=== PATIENT | female | born 1970 | race American Indian/Alaskan Native ===

== ENCOUNTER 2019-04-16 07:49 | Emergency (ER) | payer MEDICAID ==
[2019-04-16 08:02] VITALS: BP 130/63
--- NOTE | 2019-04-16 08:30 | Emergency Department Report ---
HPI - General Chief Complaint: Skin Rash Time Seen by Provider: 04/16/19 08:04 - HPI HPI: 48-year-old -[place] female presents to the emergency department with a complaint of a rash that has been going on for the past month. This started off as small circular lesions and sometimes will grow larger in size. There are raised from the skin and often times are itchy. She denies any bleeding, weeping or drainage. She has some sporadic localized lesions seen to the bilateral arms and her abdomen. The patient says that her daughter also had one of these lesions recently but it was treated with some hydrocortisone cream and it has since resolved. The patient has been using some [id number] steroid cream as well without much relief. No recent travel. ED Past Medical Hx - Past Medical History Previous Medical History?: Yes Hx Arthritis: Yes - Surgical History Past Surgical History?: Yes Additional Surgical History: Tubal Ligation 2011 - Social History Smoking Status: Former Smoker Substance Use Type: Alcohol - Medications Home Medications: Home Medications Medication Instructions Recorded Confirmed Last Taken Type Acetaminophen/Codeine [Tylenol #3] 1 tab PO Q6H PRN #14 tab 04/18/16 Unknown Rx Clotrimazole 1% [Lotrimin 1%] 1 applic TP BID #1 tube 04/16/19 Unknown Rx ED Review of Systems ROS: Stated complaint: RASH Other details as noted in HPI Comment: All other systems reviewed and negative Constitutional: denies: chills, fever Skin: rash, lesions Hematological/Lymphatic: denies: easy bleeding, easy bruising Physical Exam - Physical Exam Vital Signs: Vital Signs 04/16/19 07:56 Temperature 99 F Pulse Rate 72 Respiratory 18 Rate Blood Pressure 130/63 O2 Sat by Pulse 100 Oximetry Physical Exam: GENERAL: The patient is well-developed well-nourished. HENT: Normocephalic. Atraumatic. Patient has moist mucous membranes. EYES: Extraocular motions are intact. NECK: Supple. Trachea is midline. CHEST/LUNGS: Clear to auscultation. There is no respiratory distress noted. HEART/CARDIOVASCULAR: Regular. There is no tachycardia. There is no murmur. ABDOMEN: There is no abdominal distention. SKIN: The patient has multiple sporadic localized circular raised dry scaly lesions seem to the bilateral upper extremities as well as the abdomen. There is no bleeding, weeping, drainage. These lesions appear concerning for an consistent with tinea corporis. NEURO: The patient is awake, alert, and oriented. The patient is cooperative. The patient has no focal neurologic deficits. The patient has normal speech. MUSCULOSKELETAL: There is no tenderness or deformity. There is no evidence of acute injury. ED Course Vital Signs 04/16/19 07:56 Temperature 99 F Pulse Rate 72 Respiratory 18 Rate Blood Pressure 130/63 O2 Sat by Pulse 100 Oximetry ED Medical Decision Making - Medical Decision Making The patient presents with complaint of some type of a rash or bites or lesions that up and going on for the past month. Some of them will go away and then they will come back for new lesions were palpable. On examination, she has multiple circular raised scaly dry lesions that appear concerning for tinea corporis. Most of them are rather small about 1 cm the larger one was seen to the right proximal bicep. The patient says that her daughter had one of these lesions but it went away with only hydrocortisone. However, given the length of time the patient has been doing this and the physical appearance of the rash just lesions, the patient will be treated with clotrimazole twice a day for 2-3 weeks. 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 We discussed how easily this rash can be transferred or spread and that she will need to cover them up when in contact with anyone or sharing any type of furniture or equipment. She will return to ER for any worsening of her symptoms or any acute distress. - Differential Diagnosis tinea corporis, dermatitis, viral exanthem Critical Care Time: No Critical care attestation.: If time is entered above; I have spent that time in minutes in the direct care of this critically ill patient, excluding procedure time. ED Disposition Clinical Impression: Tinea corporis Disposition: DC-01 TO HOME OR SELFCARE Is pt being admited?: No Condition: Stable Instructions: Tinea Corporis (ED) Additional Instructions: Please follow-up with your primary care physician. I have given you a referral for 2 different dermatologists to follow-up regarding your rash. Return to the emergency Department with any worsening of your symptoms or any acute distress. This rash is easily transferable/spreadable. Make sure to cover up the lesions when interacting or contacting other people, or utilizing any shared furniture, equipment, etc. You will use the antifungal cream for 2-3 weeks, the rash/lesions have resolved. Prescriptions: Clotrimazole 1% [Lotrimin 1%] 1 applic TP BID #1 tube Referrals: HERNÁN GARCIA MD [Primary Care Provider] - 2-3 Days VERNA KINCAID MD [Staff Physician] - 2-3 Days Maurice Rivera [Other] - 2-3 Days Time of Disposition: 08:32
== END 2019-04-16 08:45 | disposition home or self-care (01) ==
LOC: ED 07:49
DX: B35.4 Tinea corporis (principal); M19.90 Unspecified osteoarthritis, unspecified site; Z98.51 Tubal ligation status; Z87.891 Personal history of nicotine dependence

== ENCOUNTER 2021-09-11 06:32 | Emergency (ER) | payer MEDICAID ==
[2021-09-11] MEDS ORDERED: HYDROcodone/ACETAMINOPHEN 10-325MG TAB PO ONE (07:22)
--- NOTE | 2021-09-11 07:26 | Emergency Department Report ---
ED Back Pain/Injury HPI - General Chief Complaint: Back Pain/Injury Stated Complaint: BACK PAIN SILVANA Time Seen by Provider: 09/11/21 07:12 Source: patient Limitations: No Limitations - History of Present Illness Initial Comments: 50 year-old female presents to the ER today with complaints of severe left thoracic back pain. Patient states that her pain started around 130 this mor hanane while she was lifting up a box. She states that she did not think that the boxes are heavy. She states that she started with immediate pain while lifting the box. She states that the pain has been constant since this morning and radiates underneath her left breast. She reports difficulty taking a deep breath due to worsening pain. She also reports worsening pain with movement and certain positions. She reports nausea but no vomiting. She denies any abdominal pain. Diaphoresis, fever, chills, cough or any other URI symptoms. She denies any lower extremity swelling or calf pain. She denies any pain down into her lower back or into the legs. She denies any saddle anesthesia, bowel or bladder incontinence, lower extremity weakness. She states that she has a history of scoliosis but denies any other spine issues. She smokes but she denies any illicit drugs. She denies any significant past medical history. MD Complaint: back pain -: Sudden - Related Data Previous Rx's Medication Instructions Recorded Last Taken Type Acetaminophen/Codeine [Tylenol #3] 1 tab PO Q6H PRN #14 tab 04/18/16 Unknown Rx Clotrimazole 1% [Lotrimin 1%] 1 applic TP BID #1 tube 04/16/19 Unknown Rx HYDROcodone/APAP 5-325 [Luckey 1 each PO Q4HR PRN #12 tablet 09/11/21 Unknown Rx 5/325] Ketorolac [Toradol] 10 mg PO Q6H PRN #20 tablet 09/11/21 Unknown Rx Metaxalone [Skelaxin] 800 mg PO TID #30 tablet 09/11/21 Unknown Rx Allergies Allergy/AdvReac Type Severity Reaction Status Date / Time No Known Allergies Allergy Verified 04/18/16 19:30 ED Review of Systems ROS: Stated complaint: BACK PAIN SILVANA Other details as noted in HPI Comment: All other systems reviewed and negative Constitutional: denies: chills, fever Eyes: denies: eye pain, eye discharge, vision change ENT: denies: ear pain, throat pain, dental pain, hearing loss, congestion Respiratory: other (difficulty taking a deep breath due to pain ). denies: cough, orthopnea, shortness of breath, SOB with exertion, SOB at rest, wheezing Cardiovascular: denies: chest pain, palpitations, dyspnea on exertion, edema, syncope, paroxysmal nocturnal dyspnea Endocrine: no symptoms reported Gastrointestinal: denies: abdominal pain, nausea, vomiting, diarrhea, constipation, hematemesis, melena Genitourinary: denies: urgency, dysuria, hematuria, discharge, abnormal menses, dyspareunia Musculoskeletal: back pain. denies: joint swelling, arthralgia, myalgia Skin: denies: rash, lesions, change in color, change in hair/nails, pruritus Neurological: denies: headache, weakness, numbness, paresthesias, confusion, abnormal gait, vertigo Psychiatric: denies: anxiety, depression, auditory hallucinations, visual hallucinations, homicidal thoughts ED Past Medical Hx - Past Medical History Previous Medical History?: Yes Hx Arthritis: Yes - Surgical History Past Surgical History?: Yes Additional Surgical History: Tubal Ligation 2011 - Social History Smoking Status: Former Smoker Substance Use Type: Alcohol - Medications Home Medications: Home Medications Medication Instructions Recorded Confirmed Last Taken Type Acetaminophen/Codeine [Tylenol #3] 1 tab PO Q6H PRN #14 tab 04/18/16 Unknown Rx Clotrimazole 1% [Lotrimin 1%] 1 applic TP BID #1 tube 04/16/19 Unknown Rx HYDROcodone/APAP 5-325 [Luckey 1 each PO Q4HR PRN #12 tablet 09/11/21 Unknown Rx 5/325] Ketorolac [Toradol] 10 mg PO Q6H PRN #20 tablet 09/11/21 Unknown Rx Metaxalone [Skelaxin] 800 mg PO TID #30 tablet 09/11/21 Unknown Rx ED Physical Exam - General Limitations: No Limitations General appearance: alert, in distress (Patient appears uncomfortable and appears to be in pain), obese - Head Head exam: Present: atraumatic, normocephalic, normal inspection - Eye Eye exam: Present: normal appearance, PERRL, EOMI Pupils: Present: normal accommodation - ENT ENT exam: Present: normal exam, mucous membranes moist - Neck Neck exam: Present: normal inspection, full ROM. Absent: tenderness, meningis mus - Respiratory Respiratory exam: Present: normal lung sounds bilaterally. Absent: respiratory distress, wheezes, rales, rhonchi, chest wall tenderness - Cardiovascular Cardiovascular Exam: Present: regular rate, normal rhythm, normal heart sounds - GI/Abdominal GI/Abdominal exam: Present: soft. Absent: distended, tenderness, guarding, rebound - Back Exam Back exam: Present: normal inspection, paraspinal tenderness. Absent: vertebral tenderness - Expanded Back Exam Expanded 1 - Severe tenderness to palpation mainly over the soft tissue/paraspinal muscles. No vertebral point tenderness. No apparent swelling, bruising or rash or ecchymosis noted. The motion of back reduced due to pain. - Neurological Exam Neurological exam: Present: alert, oriented X3, CN II-XII intact. Absent: motor sensory deficit - Psychiatric Psychiatric exam: Present: normal affect, normal mood - Skin Skin exam: Present: intact ED Course Vital Signs 09/11/21 09/11/21 06:38 11:39 Temperature 98.6 F 97.2 F L Pulse Rate 69 62 Respiratory 18 18 Rate Blood Pressure 125/61 Blood Pressure 141/66 [Left] O2 Sat by Pulse 97 100 Oximetry ED Medical Decision Making - Lab Data Result diagrams: 09/11/21 07:55 09/11/21 07:55 - EKG Data EKG shows normal: sinus rhythm Rate: bradycardia (45) - EKG Data Interpretation: no acute changes - Medical Decision Making 50 year-old female presents to the ER today with complaints of severe left thoracic back pain. Patient states that her pain started around 130 this morning while she was lifting up a box. She states that she did not think that the boxes are heavy. She states that she started with immediate pain while lifting the box. She states that the pain has been constant since this morning and radiates underneath her left breast. She reports difficulty taking a deep breath due to worsening pain. She also reports worsening pain with movement and certain positions. She reports nausea but no vomiting. She denies any abdominal pain. Diaphoresis, fever, chills, cough or any other URI symptoms. She denies any lower extremity swelling or calf pain. She denies any pain down into her lower back or into the legs. She denies any saddle anesthesia, bowel or bladder incontinence, lower extremity weakness. She states that she has a history of scoliosis but denies any other spine issues. She smokes but she denies any illicit drugs. She denies any significant past medical history. All labs reviewed - CBC and CMP unremarkable. Trop negative. EKG showed sinus familia with HR of 46 (but HR on VS are normal), EKG otherwise shows no STEMI, other acute ischemic changes or significant dysrhythmias. cxr shows nothing acute. I suspect patient pain is likely related so muscle strain as she does have reproducible pain on palpation, and it does hurt with movement. I have a very low suspicion that this could be related to unstable angina, PE as she has a PERC score of 0 and normal vital signs, aortic dissection, kidney stones as she has no blood in her urine or pyelonephritis, or any other intra-abdominal or intrathoracic pathology, cauda equina, epidural abscess or any other emergent conditions warranting additional testing, admission or specialist consult at this time. I discussed all lab results with patient. I did discuss suspected diagnosis with patient. I also discussed worsening signs and symptoms with patient and if she does develop the symptoms return immediately to the ER. Patient informed to follow-up closely with her PCP. Patient expressed understanding of all instructions and agree with plan. Patient was stable at time of discharge. Critical care attestation.: If time is entered above; I have spent that time in minutes in the direct care of this critically ill patient, excluding procedure time. ED Disposition Clinical Impression: Strain of thoracic back region Disposition: 01 HOME / SELF CARE / HOMELESS Is pt being admited?: No Does the pt Need Aspirin: No Condition: Stable Instructions: Muscle Strain, [id number] Additional Instructions: I recommend that you take the Toradol, the Skelaxin and the hydrocodone as prescribed to help your pain. Can also do gentle massages to the area or heat. You can also follow some of the back stretching exercises listed on your discharge instructions. Return to the area if at any point your symptoms worsen, with associated chest pain, severe difficulty breathing, fever or chills. In the meantime I recommend that you follow-up with your PCP next week. Return to the ER if your symptoms changes or worsens in any way. Prescriptions: HYDROcodone/APAP 5-325 [Luckey 5/325] 1 each PO Q4HR PRN #12 tablet PRN Reason: Pain Metaxalone [Skelaxin] 800 mg PO TID #30 tablet Ketorolac [Toradol] 10 mg PO Q6H PRN #20 tablet PRN Reason: Pain Referrals: XENIA CHOPRA MD [Staff Physician] - 3-5 Days BRANDI BAGLEY MD [Staff Physician] - 3-5 Days Forms: Work/School Release Form(ED) Time of Disposition: 11:08
[2021-09-11] MEDS ORDERED: NAPROXEN 500 MG TAB PO SCH (08:00)
[2021-09-11 08:18] LABS: Basophils % (Auto) 0.8 % (0.0-1.8); Eosinophils # (Auto) 0.2 K/mm3 (0.0-0.4); Eosinophils % (Auto) 4.6 % (0.0-4.3); Hemoglobin 9.8 gm/dl (10.1-14.3); Lymphocytes # (Auto) 1.5 K/mm3 (1.2-5.4); Lymphocytes % (Auto) 27.9 % (13.4-35.0); Mean Corpuscular HGB Conc 31 % (30-34); Mean Corpuscular Volume 74 fl (79-97); Monocytes # (Auto) 0.4 K/mm3 (0.0-0.8); Monocytes % (Auto) 7.6 % (0.0-7.3); Platelet Count 542 K/mm3 (140-440); Red Blood Count 4.33 M/mm3 (3.65-5.03); Red Cell Distribution Width 18.5 % (13.2-15.2)
--- NOTE | 2021-09-11 08:28 | XRay Report ---
CHEST 2 VIEWS INDICATION / CLINICAL INFORMATION: Left upper back pain into chest. COMPARISON: None available. FINDINGS: SUPPORT DEVICES: None. HEART / MEDIASTINUM: No significant abnormality. LUNGS / PLEURA: Minimal atelectasis in left lower lung No pneumothorax. ADDITIONAL FINDINGS: No significant additional findings. IMPRESSION: 1. No acute findings. Signer Name: Og Godinez MD Signed: 09/11/2021 8:24 AM Workstation Name: [id number]
[2021-09-11 08:34] LABS: Alanine Aminotransferase 13 units/L (7-56); Blood Urea Nitrogen 8 mg/dL (7-17); Calcium 9.1 mg/dL (8.4-10.2); Hemolysis Index 4
[2021-09-11 08:36] LABS: BUN/Creatinine Ratio 11
[2021-09-11 08:39] LABS: Bilirubin,Urine NEG (Negative); Blood,Urine NEG (Negative); Color,Urine Yellow (Yellow); Mucus,Urine FEW /HPF; Protein,Urine <15 mg/dL mg/dL (Negative)
[2021-09-11] MEDS ORDERED: CYCLOBENZAPRINE 10 MG TAB PO ONE (09:17)
[2021-09-11] MEDS ORDERED: KETOROLAC 30 MG/1 ML INJ IM ONE (09:44)
[2021-09-11 11:45] VITALS: BP 141/66
--- NOTE | 2021-09-12 09:30 | Electrocardiograph Report ---
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
== END 2021-09-11 11:39 | disposition home or self-care (01) ==
LOC: ED 06:32
DX: S29.012A Strain of muscle and tendon of back wall of thorax, initial encounter (principal); M19.90 Unspecified osteoarthritis, unspecified site; Z98.51 Tubal ligation status; Z87.891 Personal history of nicotine dependence; Z72.89 Other problems related to lifestyle; X50.0XXA Overexertion from strenuous movement or load, initial encounter; Y93.89 Activity, other specified; Y92.89 Other specified places as the place of occurrence of the external cause; Y99.8 Other external cause status
CPT/HCPCS: 36415; 71046; 80053; 81001; 83690; 84484; 84703; 85025; 93005; 96372; 99284; J1885